=== PATIENT | female | born 2000 | race Hispanic/Latino ===

== ENCOUNTER 2024-11-30 14:29 | Emergency (ER) | payer OTHER, BC ==
[~2024-11-30] VITALS: Ht 162.6 cm; Wt 90.7 kg
--- NOTE | 2024-11-30 15:55 | HMCIMG ---
Exam Type: KNEE 3VWS RT Clinical Information: pain Comparison: None Findings: The bone examination is unremarkable. No fractures or dislocations are seen. No radiopaque foreign bodies are noted. Soft tissues are preserved. IMPRESSION: Normal examination.
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
[2024-11-30 16:48] VITALS: BP 121/74; PULSE 82; RESP 20; TEMP 98.2; O2SAT 99
== END 2024-11-30 16:50 | disposition home or self-care (01) ==
LOC: EDH 14:29
DX: S89.91XA Unspecified injury of right lower leg, initial encounter (principal); Y04.2XXA Assault by strike against or bumped into by another person, initial encounter; Y93.89 Activity, other specified; Y92.89 Other specified places as the place of occurrence of the external cause; Y99.8 Other external cause status
CPT/HCPCS: 73562; 99283